=== PATIENT | male | born 1935 | race Native Hawaiian/Other Pacific Islander ===

== ENCOUNTER → 2019-02-12 | Outpatient (CLI) | payer OTHER | LOC: ULTRA 14:05 | DX: I83.892 Varicose veins of left lower extremity with other complications (principal); M79.89 Other specified soft tissue disorders; R09.89 Other specified symptoms and signs involving the circulatory and respiratory systems ==

== ENCOUNTER → 2019-05-28 | Outpatient (CLI) | payer OTHER ==
[~2019-05-28] MED LIST: IRON325 PO
[2019-05-28 10:20] VITALS: BP 151/80
[2019-05-28 11:55] VITALS: BP 137/69
--- NOTE | 2019-05-28 15:19 | NUR ---
IN FOR 1ST INJECTAFER INFUSION FOR IRON DEFICIENCY ANEMIA. ADMISSION HISTORY AND ASSESSMENT COMPLETED. PT'S DTR ASSISTED WITH TRANSLATION PT ONLY SPEAKS YI. PATIENT HAS NO KNOWN ALLERGIES. TAKES ONLY PO IRON AT PRESENT. IV STARTED AND INJECTAFER INFUSED OVER 30 MINUTES. TOLERATED WELL WITHOUT INCIDENT. OBSERVED FOR 30 MIN. DENIED DIZZINESS. POST BP GOOD. REMOVED IV AND DISMISSED IN STABLE CONDITION. SCHEDULED TO RETURN NEXT TUESDAY FOR 2ND AND FINAL INJECTAFER INFUSION.
== END ==
LOC: OPONC
DX: D50.9 Iron deficiency anemia, unspecified (principal); T45.4X5A Adverse effect of iron and its compounds, initial encounter
CPT/HCPCS: 95000

== ENCOUNTER → 2019-06-04 | Outpatient (CLI) | payer OTHER ==
[2019-06-04 09:55] VITALS: BP 136/77
[2019-06-04 11:45] VITALS: BP 134/70
--- NOTE | 2019-06-04 11:50 | NUR ---
HERE FOR 2ND AND FINAL INJECTAFER INFUSION. DAUGHTER WITH PT TO HELP WITH TRANSLATION PT SPEAKS ONLY ENGLISH. PT INDICATES THAT HE TOLERATED INFUSION FROM LAST WEEK WITHOUT UNTOWARD AFFECTS. TOLERATED TODAY'S INFUSION WITHOUT INCIDENT, NO S/S REACTION. VSS POST, WATCHED FOR 30 MIN POST. DISMISSED IN STABLE CONDITION. DTR STATES PLAN IS TO HAVE F/U LABS WITH DR. CARREON.
== END ==
LOC: OPONC 05-28 01:02
DX: D50.9 Iron deficiency anemia, unspecified (principal); T45.4X5A Adverse effect of iron and its compounds, initial encounter
CPT/HCPCS: 95000

== ENCOUNTER 2019-10-27 13:54 | Inpatient (IN) | payer OTHER ==
[~2019-10-27] VITALS: Ht 175.3 cm; Wt 98.9 kg
[2019-10-27 14:03] VITALS: BP 138/71
[2019-10-27 14:27] LABS: HEMATOCRIT 36.1 % (42.0-52.0); HEMOGLOBIN 12.3 gm/dL (14.0-18.0); MCH 41.1 pg (26.0-34.0); MCV 120.9 fL (80.0-100.0); PLATELET COUNT 121 thou/uL (150-400); RBC 2.99 mil/uL (4.50-6.00); RDW 14.4 % (10.5-14.5); WBC 5.7 thou/uL (4.0-11.0)
[2019-10-27 14:37] LABS: CALCIUM 9.1 mg/dL (8.5-10.1); CREATININE 1.5 mg/dL (0.7-1.3); POTASSIUM 3.7 mmol/L (3.5-5.1)
[2019-10-27 14:43] LABS: ALBUMIN 4.4 g/dL (3.4-5.0); DIRECT BILIRUBIN 0.3 mg/dL (<0.1-0.2)
[2019-10-27 14:50] LABS: ABSOLUTE NEUTROPHILS 4.8 thou/uL (1.4-8.2); MACROCYTES 2+; PLATELET ESTIMATE NORMAL
[2019-10-27 16:02] LABS: URINE BILIRUBIN NEGATIVE (Negative); URINE BLOOD TRACE (Negative); URINE CLARITY CLEAR; URINE COLOR YELLOW; URINE GLUCOSE-RANDOM* NEGATIVE (Negative); URINE KETONES 1+ (Negative); URINE LEUKOCYTES-REFLEX NEGATIVE (Negative); URINE NITRITE-REFLEX NEGATIVE (Negative); URINE PROTEIN (DIPSTICK) 1+ (Negative); URINE SPECIFIC GRAVITY >= 1.030 (1.005-1.035); URINE UROBILINOGEN 0.2 E.U./dl (0.2-1.0)
[2019-10-27 16:06] LABS: SQUAMOUS 0-3 Few /LPF (0-3)
[2019-10-27 16:07] LABS: BACTERIA-REFLEX 1-9 Few /HPF (None Seen); CASTS None Seen /LPF (None Seen); CRYSTALS None Seen /LPF (None Seen); MUCUS 0-3 Light strn/LPF (None Seen); URINE RBC 0-2 Rare /HPF (0-2); URINE WBC-REFLEX None Seen /HPF (0-5)
[2019-10-27 17:03] LABS: BE(vivo) -3.6 mmol/L (-2 to +3); HCO3 19.7 mmol/L (22.0-26.0); PCO2 29.9 mmHg (35.0-45.0); PO2 69.3 mmHg (80.0-100.0); pH 7.436 (7.360-7.450); sO2 94.7 % (92.0-98.0)
[2019-10-27 17:11] LABS: ALBUMIN 4.5 g/dL (3.4-5.0); TOTAL PROTEIN 7.7 g/dL (6.4-8.2)
[2019-10-27 17:17] VITALS: BP 123/66
[2019-10-27 17:31] VITALS: BP 107/58
[2019-10-27 17:36] LABS: TSH 0.412 uIU/mL (0.358-3.740)
[2019-10-27 18:34] VITALS: BP 106/50
--- NOTE | 2019-10-27 18:48 | NUR ---
PATIENT ARRIVED FROM ED VIA W/C, ALERT AND ORIENTED X4. TEMP 99.8 ON ADMISION AND OTHER VSS. SR W/BBB ON THE MONITOR. PATIENT IS CROATIAN SPEAKING AND ASSESMENT AND ADMISION COMPLETED WITH THE HELP OF HAMMAD AND DR KAMARA.
[2019-10-27 21:14] VITALS: BP 126/73
[2019-10-28 04:29] LABS: HEMATOCRIT 31.5 % (42.0-52.0); HEMOGLOBIN 10.7 gm/dL (14.0-18.0); MCH 41.3 pg (26.0-34.0); MCV 121.5 fL (80.0-100.0); RBC 2.59 mil/uL (4.50-6.00); RDW 14.3 % (10.5-14.5); WBC 4.6 thou/uL (4.0-11.0)
[2019-10-28 04:38] VITALS: BP 114/47
[2019-10-28 04:49] LABS: CALCIUM 7.7 mg/dL (8.5-10.1); CREATININE 1.5 mg/dL (0.7-1.3); MAGNESIUM 1.7 mg/dL (1.8-2.4); POTASSIUM 3.4 mmol/L (3.5-5.1)
--- NOTE | 2019-10-28 06:20 | NUR ---
PT ALERT AND ORIENTED NON-ESTONIAN SPEAKING. DENIES PAIN. ASSIST X1 WITH TRANSFERS UNSTEADY. PT SPEAKS BULGARIAN ONLY. 02 2L PER NC. PT HAD ELEVATED TEMP OVERNITE 102.6F TYLENOL ORDER OBTAINED LAST TEMP 99.8. CONTINUING TO MONITOR. PT ON DROPLET PRECAUTION FOR INFLUENZA. LACTATE ELEVATED LAST LAB CHECK 2.3
[2019-10-28 08:23] VITALS: BP 131/72
[2019-10-28 11:00] VITALS: BP 141/79
[2019-10-28 12:05] VITALS: BP 99/41
[2019-10-28 15:40] VITALS: BP 132/60
--- NOTE | 2019-10-28 16:18 | EKG ---
[address] [address] ELECTROCARDIOGRAM REPORT Name: MARCO A LATHAM Room #: 204-P ADM IN M.R.#: [id number] Admission: 10/27/19 Attend Phys: Kumar Stevenson MD Discharge: Date of : 37 Report #: [id number] THIS REPORT FOR: //name// [facility] ED Test Date: 2019-10-27 Test Time: 14:02:21 Pat Name: MARCO A LATHAM Department: Room: 204 P Gender: M Entry Specialist: LEANDRO : 1935 Requested By: Kumar Stevenson Order Number: [id number] MD: Gatito Dickerson Measurements Intervals [place] Rate: 96 P: 35 CT: 166 QRS: -8 QRSD: 160 T: 152 QT: 405 QTc: 512 Interpretive Statements Sinus rhythm Left bundle branch block No previous ECG available for comparison Electronically Signed On 10-28-2019 16:17:43 SOURCING COORDINATOR by Gatito Dickerson [email or web address] <ELECTRONICALLY SIGNED> By: Gatito Dickerson MD 10/28/19 1617 01 01 Gatito Dickerson MD /IKE
[2019-10-28 17:10] LABS: HEMATOLOGY COMMENTS Note: (()); HEMOGLOBIN 10.4 g/dL (13.0-17.7)
--- NOTE | 2019-10-28 18:18 | NUR ---
ASSUMED CARE AT SHIFT CHANGE, ALERT AND ORIENTED X4. CZECH SPEAKING ONLY. MEDICATED FOR TEMP OF 100.8, WITH A RELIEVE. FAMILY VISITED. AND WILL CONTINUE WITH POC.
[2019-10-28 20:14] VITALS: BP 106/56
[2019-10-29 04:27] LABS: APTT 32.9 Seconds (24.5-32.8); PROTIME 10.2 Seconds (9.3-11.4)
[2019-10-29 04:28] LABS: CALCIUM 7.9 mg/dL (8.5-10.1); CREATININE 1.3 mg/dL (0.7-1.3); MAGNESIUM 2.2 mg/dL (1.8-2.4)
[2019-10-29 04:51] LABS: HEMATOCRIT 34.4 % (42.0-52.0); HEMOGLOBIN 11.5 gm/dL (14.0-18.0); MCHC 33.5 g/dL (28.0-37.0); MCV 122.2 fL (80.0-100.0); RBC 2.82 mil/uL (4.50-6.00); WBC 3.4 thou/uL (4.0-11.0)
[2019-10-29 05:24] VITALS: BP 120/73
--- NOTE | 2019-10-29 05:34 | NUR ---
PATIENTS CARES WERE ASSUMED AT SHIFT CHANGE. PATIENT WAS ASSESSED AND MEDS WERE PASSSED PATIENT IS A GHANAIAN SPEEKING ONLY. HE DOES COMMUNICATE IF YOU HAVE ELEMETRY GHANAIAN.HOURLY ROUNDS WERE MADE. THE BED IS IN A LOW AND LOCKED POSITION. THE BED ALARM IS ON.
[2019-10-29 08:21] VITALS: BP 168/95
[2019-10-29] MEDS ORDERED: OSELTAMIVIR PHO75 MG PO ×2 (14:44→16:26)
[2019-10-29 14:54] VITALS: BP 168/95
[2019-10-29] MEDS ORDERED: VITAMIN B-12500 MCG PO ×2 (14:59→16:26)
[2019-10-29 15:00] VITALS: BP 168/95
--- NOTE | 2019-10-29 15:16 | NUR ---
ASSUMED CARE AT SHIFT CHANGE, ALERT AND ORIENTED X4. SR/BBB ON THE MONITOR AND VSS. PATIENT IS ANXIOUS TO GO HOME. SPOKE WITH PATIENT DAUGHTER GENE, AND HE WILL BE DISCHARGING WITH HER.WAITING ON DISCHARGE ORDERS.
[2019-10-29] MEDS ORDERED: B12INJ SUBQ ×2 (15:40→16:26)
[2019-10-29] MEDS ORDERED: [UNRECOGNIZED DRUG - OTHER] (16:26)
--- NOTE | 2019-10-29 16:53 | NUR ---
FAXEED REFERRAL TO [facility] SPOKE WITH RAFAEL IN INTAKE SHE RECEIVED REFERRAL AND CAN ACCEPT AT DC. PT DISCHARGING TODAY TO HOME WITH [facility] FAXED DC ORDERS/SUMMARY SPOKE WITH EAN IN INTAKE SHE RECEIVED DC ORDERS AND WILL NOTIFY PT TIME OF VISITS.
--- NOTE | 2019-10-29 21:01 | HC ---
[place] [address] CONSULTATION Name: MARCO A LATHAM Room #: 204-P [facility] IN M.R.#: [id number] Admission: 10/27/19 Attend Phys: Kumar Stevenson MD Discharge: 10/29/19 Date of : 37 Report #: [id number] THIS REPORT FOR: //name// CC: Kumar Silva MD REASON FOR CONSULTATION: Macrocytosis and vitamin B12 deficiency. HISTORY OF PRESENT ILLNESS: The patient is a pleasant 84-year-old gentleman who does not speak Vietnamese. We used the phone gold and silver assayer and also his chart to get his history. It sounds like he had been doing well until 2 or 3 days prior to admit when he had a fever and also had decreased appetite. Here in the hospital, he was found to have positive for influenza A, was also noted to have a hemoglobin of 12.3 with an MCV of 121.5. White count of 5.7 with normal differential, platelets 100,000. Liver functions were normal. In talking with the patient, it is like he has not been B12 deficient before. He is not sure when his last lab was done. He does report a good appetite. No significant weight change. No enlarged glands. When asked about lumps on his right leg, I get the sense they have been there for quite some time. He does have a history of melanoma, I think he said about 17 years ago resected from his right foot and that he does have some sort of almost some vascular type changes with some like redness of the skin from about his knee down to his ankle, but there is also some more widest lumps in the skin, maybe 4 or 5 that are about 1.5 cm in diameter. I get the sense they have been there for quite a while, but it is hard to know for sure with the language difficulty. We will let some of our Jordanian speaking physicians and nurses try to clarify this for us. REVIEW OF SYSTEMS: The patient had fever and cough since he has been here, also anorexia. No nausea or vomiting. There is only some slight constipation recently. No new blood in his urine or stool. No new skin rash. He seems to think the redness of his leg and lumps on his right leg are unchanged over some time. He reports no mental difficult. I do not know when he came in, there was thought to be some question of some slight confusion. PAST MEDICAL HISTORY: It sounds notable for BPH, surgery in the past; also melanoma of his right foot, I think about 17 years ago; history of ganglion cyst; lymphedema of lower extremities; iron deficiency anemia; left wrist fracture 40 years ago. FAMILY HISTORY: Per others. SOCIAL HISTORY: Per others. [address] [place] [address] CONSULTATION Name: MARCO A LATHAM Room #: 204-P DIS IN M.R.#: [id number] Admission: 10/27/19 Attend Phys: Kumar Stevenson MD Discharge: 10/29/19 Date of : 37 Report #: [id number] MEDICATIONS: Outpatient include iron 325 mg daily. SOCIAL HISTORY: Alcohol use. Nonsmoker, no recreational drugs. MEDICATIONS: At this time, currently include the flu vaccine. Also B12 of 500 mcg daily, Tylenol p.r.n., Tamiflu 75 b.i.d., cyanocobalamin 1000 mcg daily subcu, IV fluids, MiraLax daily, magnesium sulfate given in the ER. PHYSICAL EXAMINATION: GENERAL: The patient appears his stated age. VITAL SIGNS: Height is 5 feet 9, which is 175.3 cm. Weight 218 pounds or 98.9 kilograms. Blood pressure is 120/73; O2 sat 97%; respirations 16; pulse 79; afebrile, but note last evening, he was 100.3 orally and he has been as high as 102.6 and 103.9 early in the admission. HEENT: Face appears symmetrical. LUNGS: Mostly clear, there may be some very soft central rhonchi that easily clear. LYMPHATICS: No enlarged lymph nodes in the supraclavicular, cervical, axillary region. ABDOMEN: Obese. No hepatosplenomegaly. EXTREMITIES: Without clubbing or cyanosis. Note that on his right lower extremity from the knee to ankle, it is slightly gonzales and red like, expect from vascular changes also, some slight redness. Does have the cutaneous more white lumps on the skin that are may be about 1.5 cm to 0.5 cm. There is about 5 or 6 of these, there may be some smaller ones. LABORATORY DATA: Notable for liver functions, especially bilirubin is normal; albumin of 4.5 on admit. Coags were mostly normal. White count 3.4 today, hemoglobin 11.5, MCV 122.2, RDW 14, platelets were 121 on admit, 95,000 today. Differential nonacute. Peripheral smear performed nonacute, another measurement of MCV is at 114. Note that his influenza A was positive. TSH was normal at 0.412. Folate 52.8. Vitamin B12 less than 80. UA showed a few bacteria, some mucus. Imaging included a chest x-ray that showed mild cardiomegaly with mild interstitial prominence, likely age-related. Note that also in the past year in 01/2019, he had ultrasound of the left leg showing left calf vein varicosities present. No DVTs, no hemodynamically significant arterial stenosis was seen about the same time. ASSESSMENT AND PLAN: 1. Vitamin B12 and macrocytosis, likely related to poor B12 absorption without weight loss or adenopathy or gastrointestinal symptoms. I doubt there is unusual GI consult, consult with GI could be considered given his reported history of iron deficiency. 2. We continue the oral B12 as well as a subcutaneous B12 give the question of neuropathy in his toes and also mentation. Differential would probably do [address] [place] [address] CONSULTATION Name: MARCO A LATHAM Room #: 204-P DIS IN M.R.#: [id number] Admission: 10/27/19 Attend Phys: Kumar Stevenson MD Discharge: 10/29/19 Date of : 37 Report #: [id number] subcutaneous daily for a week, then weekly for a month and then monthly after that. Could also consider oral B12 at some point, but we need to be followed to make sure his B12 is normalized. 3. History of melanoma not known to be recurrent. 4. Right calf and woo cutaneous lumps. We will hope that others were more fluent or can speak Jordanian could clarify the nature of these lesions. Could be followed as an outpatient if concerned could consult Surgery. 5. History of benign prostatic hypertrophy, status post-surgery. 6. Flu. Continue Tamiflu. We will follow with you. <ELECTRONICALLY SIGNED> By: Ghassan Sierra MD 10/29/19 2101 0809 [id number] Ghassan Sierra MD /nt
== END 2019-10-29 17:30 | disposition home health service (06) | DRG 871 ==
LOC: ER 13:54 → EROBS 16:50 → 2N 16:50 → ENTRNSPT 10-29 16:38 → 2N 10-29 17:30
PROVIDERS: Emergency Medicine; Internal Medicine Hematology & Oncology; ADMIT Internal Medicine
DX: A41.9 Sepsis, unspecified organism (principal); J96.91 Respiratory failure, unspecified with hypoxia; G93.40 Encephalopathy, unspecified; N17.9 Acute kidney failure, unspecified; D75.89 Other specified diseases of blood and blood-forming organs; E53.8 Deficiency of other specified B group vitamins; N40.0 Benign prostatic hyperplasia without lower urinary tract symptoms; J10.1 Influenza due to other identified influenza virus with other respiratory manifestations; D69.6 Thrombocytopenia, unspecified; D50.9 Iron deficiency anemia, unspecified; N18.9 Chronic kidney disease, unspecified; R20.2 Paresthesia of skin; Z79.899 Other long term (current) drug therapy; Z87.81 Personal history of (healed) traumatic fracture; Z72.89 Other problems related to lifestyle
CPT/HCPCS: 10081; 10797

== ENCOUNTER 2020-09-17 16:02 | Inpatient (IN) | payer OTHER ==
[~2020-09-17] VITALS: Ht 175.3 cm; Wt 97.5 kg
[~2020-09-17 16:02] MED LIST changes: +B12INJ SUBQ; +OSELTAMIVIR PHO75 MG PO; +VITAMIN B-12500 MCG PO; +[UNRECOGNIZED DRUG - OTHER]
[2020-09-17 16:07] VITALS: BP 178/113
[2020-09-17 16:31] LABS: ABSOLUTE NEUTROPHILS 5.8 thou/uL (1.4-8.2); BASOPHILS 0.8 % (0.0-2.0); EOSINOPHILS 4.8 % (0.0-3.0); HEMATOCRIT 42.2 % (42.0-52.0); HEMOGLOBIN 14.2 gm/dL (14.0-18.0); LYMPHOCYTES 19.2 % (24.0-44.0); MCH 29.8 pg (26.0-34.0); MCHC 33.7 g/dL (28.0-37.0); MCV 88.3 fL (80.0-100.0); MONOCYTES 8.4 % (1.0-8.0); PLATELET COUNT 166 thou/uL (150-400); POLYS 66.8 % (36.0-66.0); RBC 4.78 mil/uL (4.50-6.00); RDW 15.1 % (10.5-14.5); WBC 8.7 thou/uL (4.0-11.0)
[2020-09-17 16:46] LABS: CALCIUM 9.3 mg/dL (8.5-10.1); CREATININE 1.5 mg/dL (0.7-1.3); POTASSIUM 4.1 mmol/L (3.5-5.1)
[2020-09-17 16:51] LABS: ALBUMIN 4.2 g/dL (3.4-5.0); MAGNESIUM 1.6 mg/dL (1.8-2.4); TOTAL BILIRUBIN 0.7 mg/dL (0.2-1.0); TOTAL PROTEIN 8.3 g/dL (6.4-8.2)
[2020-09-17 17:47] LABS: BE(vivo) -1.2 mmol/L (-2 to +3); HCO3 23.2 mmol/L (22.0-26.0); PCO2 VENOUS 38.2 mmHg (41.0-51.0); PO2 VENOUS 45.3 mmHg (35.0-45.0)
[2020-09-17 19:34] LABS: URINE BILIRUBIN NEGATIVE (Negative); URINE BLOOD TRACE (Negative); URINE CLARITY CLEAR; URINE COLOR YELLOW; URINE GLUCOSE-RANDOM* 3+ (Negative); URINE KETONES NEGATIVE (Negative); URINE LEUKOCYTES-REFLEX NEGATIVE (Negative); URINE NITRITE-REFLEX NEGATIVE (Negative); URINE PROTEIN (DIPSTICK) NEGATIVE (Negative); URINE UROBILINOGEN 0.2 E.U./dl (0.2-1.0)
[2020-09-17] MEDS ORDERED: VITAMIN D21250 MC1 PO (20:37)
[2020-09-17 21:47] VITALS: BP 148/91
[2020-09-17 22:22] VITALS: BP 157/88
[2020-09-17 22:44] VITALS: BP 182/104
[2020-09-17 22:45] VITALS: BP 175/111
[2020-09-18 01:06] LABS: GLYCOHEMOGLOBIN (HGB A1C) 11.1 % (4.8-5.6)
--- NOTE | 2020-09-18 03:39 | NUR ---
ADMITTED FROM ER UNDER 'S CARE. AXOX4. VERY PLEASANT GUATEMALAN SPEAKING. CALLED FAMILY GENE AND GAVE UPDATE. NO S/S ACUTE DISTRESS NOTED OR REPORTED AT THIS TIME. WILL CONT TO MONITOR FOR ANY CHANGES IN CONDITION.
[2020-09-18 06:05] VITALS: BP 141/75
[2020-09-18 06:07] LABS: CREATININE 1.2 mg/dL (0.7-1.3); POTASSIUM 4.2 mmol/L (3.5-5.1)
--- NOTE | 2020-09-18 07:26 | EKG ---
[facility] Dori Mccormick [place] [address] ELECTROCARDIOGRAM REPORT Name: MARCO A LATHAM Room #: 459-P ADM IN M.R.#: [id number] Admission: 09/17/20 Attend Phys: Wilmer Johnson MD Discharge: Date of : 37 Report #: [id number] THIS REPORT FOR: cc: Gilma Silva MD, Nora P. MD Santiago, Patrick MD [facility] ~ THIS REPORT FOR: //name// [facility] ED Test Date: 2020-09-17 Test Time: 17:25:07 Pat Name: MARCO A LATHAM Department: Room: 459 Gender: M Motor Vehicle Representative: [email or web address] : 1935 Requested By: Dorian Castro Order Number: [id number] MD: Oswaldo Francis Measurements Intervals [place] Rate: 91 P: -17 IN: 153 QRS: -6 QRSD: 154 T: 170 QT: 436 QTc: 537 Interpretive Statements Sinus rhythm Left bundle branch block Compared to ECG 10/27/2019 14:02:21 No significant changes Electronically Signed On 09-18-2020 7:26:42 PLANTING MATERIAL UNLOADER by Oswaldo Francis [email or web address] <ELECTRONICALLY SIGNED> By: Oswaldo Francis MD, FACC 09/18/20 0726 1725 1725 Oswaldo Francis MD, [facility] /EPI
--- NOTE | 2020-09-18 10:23 | NUR ---
PT ADMITTED RELATED TO NEW ONSET DM. CM REVIEWED CHART AND SPOKE WITH CARE TEAM. CM CALLED AND SPOKE WITH PT'S DTR GENE WHO WAS AT PT'S BEDSIDE THIS DAY. PT IS SOLELY PASHTO SPEAKING. PT'S DTR INDICATED PT RESIDES IN A HOUSE WITH HER WITH 4 STEPS TO ENTER AND 5 OR 6 INSIDE. 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 DTR INDICATED THAT PT'S PCP IS DR. FELIX CARREON. PT HAD [facility] LAST YEAR AND DTR INDICATED THAT MIGHT BE BENEFICIAL TO HAVE NURSING UPON DC THIS TIME WITH NEW DM DX. CM TO FAX REFERRAL TO [facility] FOR REVIEW FOR POSSIBLE HH NURSING SERVIES. PT WILL NEED GLUCOMETER AND TESTING SUPPLIES ORDERED UPON DC. CM TO FOLLOW INDICATED WITH DC PLANNING.
--- NOTE | 2020-09-18 14:00 | NUR ---
ASSUMED CARE AT 0700 TODAY. PT. IN BED. HE SPEAKS LITTLE AZERI. DAUGHTER HERE WITH HIM THIS AFTERNOON. A HAZARDOUS MATERIALS WASTE TECHNICIAN AND DAUGHTER HELPED INTERPRET FOR THE PT. HE IS PLEASANT AND COOPERATIVE WITH CARES. ASSESSMENT UNREMARKABLE. VSS. BLOOD SUGARS REMAIN IN UPPER 200'S AND LOWER 300'S. INSULIN GIVEN PER SS. WILL CONTINUE TO MONITOR.
[2020-09-18 14:06] VITALS: BP 160/95
[2020-09-18 14:07] VITALS: BP 150/77
[2020-09-18 18:16] VITALS: BP 164/84
[2020-09-18 20:23] VITALS: BP 175/109
[2020-09-19 00:15] VITALS: BP 161/90
[2020-09-19 04:20] VITALS: BP 149/93
--- NOTE | 2020-09-19 05:43 | NUR ---
AXOX4. PLEASANT. NEW ORDERS RECEVIED FOR HTN. STARTED ON PO METFORMIN. VSS THIS AM. NO S/S ACUTE DISTRESS NOTED OR REPORTED AT THIS TIME. WILL CONT TO MONITOR FOR ANY CHANGES IN CONDITION.
--- NOTE | 2020-09-19 13:19 | NUR ---
CARE TEAM INDICATED THAT PT WILL LIKELY BE MEDICALLY STABLE TO DISCHARGE HOME WITH HOME [facility] NURSING TOMORROW Tuesday09/20/20. REFERRAL SENT TO [facility] FOR REVIEW FOR POSSIBLE ADMISSION. CM NOTIFIED PHYSICIAN THAT PT IS NEW DIABETIC AND WILL NEED SCRIPTS FOR GLUCOMETER AND TESTING SUPPLIES UPON DC. FINAL DISCHARGE ORDERS WILL NEED TO BE FAXED TO [facility] AT .
[2020-09-19 13:21] VITALS: BP 149/93
--- NOTE | 2020-09-19 18:27 | NUR ---
ASSUMED CARE OF PATIENT AT 0700. ASSESSMENT CHARTED. MEDICATIONS ADMINISTERED PER MAR. VSS. PATIENT IS A&OX3-4 BUT ONLY ERITREAN SPEAKING. DTR AT BEDSIDE AND ABLE TO ASSIST W COMMUNICATION. NEW ONSET DM; NEW ORDERS FOR ORAL ANTIDIABETICS AND INSULIN. MONITORING FSBS LEVELS. AMBULATES WELL SBA; IVF DC'D. PATIENT HAD A SHOWER WITH SETUP TODAY. PATIENT VOICES CONCERNS ABOUT DIET AND INSULIN. RD AND THIS NURSE PROVIDED EDUCATION. FALL PRECAUTIONS IN PLACE. WILL CONTINUE TO MONITOR AND FOLLOW PLAN OF CARE
[2020-09-19 20:03] VITALS: BP 182/99
[2020-09-20 00:46] VITALS: BP 157/90
--- NOTE | 2020-09-20 04:11 | NUR ---
RECEIVED IN BED AWAKE AND ALERT. ELEVATED BP REPORTED TO FUEL DOCK ATTENDANT AND NEW ORDER RECEIVED AND ADMINISTERED. NO S/S ACUTE DISTRESS NOTED OR REPORTED AT THIS TIME. WILL CONT TO MONITOR FOR ANY CHANGES IN CONDITION.
[2020-09-20 07:43] VITALS: BP 167/87
[2020-09-20] MEDS ORDERED: NORVASC10 MG PO ×2 (11:26→13:10)
[2020-09-20] MEDS ORDERED: GLUCOPHAGE1000 MG PO ×2 (11:27→13:10)
[2020-09-20] MEDS ORDERED: TRADJENTA5 MG PO ×2 (11:27→13:10)
[2020-09-20] MEDS ORDERED: FREESTYLE LANC1 EACH MISCELL ×2 (11:30→13:10)
[2020-09-20] MEDS ORDERED: FREESTYLE INSU1 EAC2 MISCELL ×2 (11:34→13:10)
[2020-09-20] MEDS ORDERED: FREESTYLE LITE1 EAC1 MISCELL ×2 (11:35→13:10)
[2020-09-20 13:07] VITALS: BP 149/93
--- NOTE | 2020-09-20 17:57 | NUR ---
ASSUMED CARE OF PATIENT AT 0700. ASSESSMENT CHARTED. MEDS ADMINISTERED PER MAR. VSS; NEW BP MEDICATION WORKING WELL AEB STABLE BP. PROVIDER SPOKE W PATIENT AND CLEARED TO [place] HOME W HOME HEALTH. THIS NURSE PROVIDED EDUCATION ON DIABETES, GLUCOSE MONIOTRING AND DIET. PATIENT DTR EVIDENT OF UNDERSTANDING USING TEACH BACK METHOD. PATIENT L UNIT AT APPROX 1600. IV WAS DISCONTINUED. PATIENT LEFT WITH DTR. VOICED NO OTHER CONCERNS PRIOR TO DISCHARGE
== END 2020-09-20 17:56 | disposition home health service (06) | DRG 70 ==
LOC: ER 16:02 → EROBS 19:46 → 4W 19:46
PROVIDERS: Emergency Medicine; Nurse Practitioner Family; ADMIT Hospitalist; ATTEND Hospitalist
DX: G93.41 Metabolic encephalopathy (principal); N17.0 Acute kidney failure with tubular necrosis; R65.11 Systemic inflammatory response syndrome (SIRS) of non-infectious origin with acute organ dysfunction; E87.2 Acidosis; E11.65 Type 2 diabetes mellitus with hyperglycemia; E86.0 Dehydration; D50.9 Iron deficiency anemia, unspecified; E55.9 Vitamin D deficiency, unspecified; E53.8 Deficiency of other specified B group vitamins; Z87.81 Personal history of (healed) traumatic fracture; Z79.899 Other long term (current) drug therapy
CPT/HCPCS: 10047